=== PATIENT | female | born 1960 | race Caucasian/White ===

== ENCOUNTER 2022-03-01 18:29 | Emergency (ER) | payer MEDICAID, SELFPAY ==
[2022-03-01 18:44] VITALS: BP 108/74; PULSE 59; RESP 18; TEMP 36.6; O2SAT 98; BMI 26.5
--- NOTE | 2022-03-01 19:24 | CRLHL7_ITS ---
For Patients: As a result of the Cures Act, medical imaging exams and procedure reports are released immediately into your electronic medical record. You may view this report before your referring provider. If you have questions, please contact your health care provider. INDICATION: Left-sided fall. TECHNIQUE: Chest and ribs, 3 views. COMPARISON: None. FINDINGS: Lungs: Linear opacity in the left lower lobe could be atelectasis or a pulmonary contusion. Pleura: No pleural effusion or pneumothorax. Heart and Mediastinum: The cardiomediastinal silhouette is normal. The vessels are unremarkable. Bones: Mildly displaced fractures of the left lateral 7th and 8th ribs. IMPRESSION: Left lateral rib fractures with underlying pulmonary opacity, possibly contusion. Dictated by Hank Upton MD @ 03/01/2022 8:01:53 PM (Electronically Signed)
--- NOTE | 2022-03-01 20:09 | ED.BACK ---
HPI - Back Pain/Injury General Chief Complaint: Back Injury/Pain Stated Complaint: Pulled Muscle or Cracked Rib,Fall Time Seen by Provider: 03/01/22 19:18 Source: patient and family Mode of arrival: ambulatory Limitations: no limitations History of Present Illness HPI Narrative: Patient is a 61-year-old female who fell outside, elicited complaint: fall Pertinent past history: other Onset (ago): minute(s) Timing: constant Severity: moderate Similar Symptoms Previously: No Quality: sharp Location: left upper back Radiation: none Exacerbating factors: movement Relieving factors: none Context: while lifting Associated symptoms: denies other symptoms Work related injury: No Related Data Home Medications Medication Instructions Recorded Confirmed No Known Home Medications 03/01/22 03/01/22 Allergies Allergy/AdvReac Type Severity Reaction Status Date / Time No Known Drug Allergies Allergy Verified 03/01/22 18:50 Review of Systems Status of ROS: Reports: 10 or more systems reviewed and unremarkable except as noted in History and below PFSH PFSH Social History Smoking Status: Never smoker Do you use any of these nicotine containing products: None How often do you have a drink containing alcohol: never How often do you have six or more drinks on one occasion: Never AUDIT-C Alcohol total score: 0 Non-prescribed substance use: denies use Exam Narrative: Exam Narrative: Patient is seen in room 3 in no apparent distress she is able to stand up albeit slowly, she complains of pain along the left lower ribs side, in the left posterior axillary line. There is no evidence of any bruising here, she is able to take a deep breath in, twisting and turning are normal there is no thoracic pain on palpation, heart sounds are normal, and she has good lung sounds bilaterally there is no tenderness in the flank region, and her abdomen is otherwise soft. Const: Vital Signs, click to edit/add: Vital Signs - 24 hr 03/01/22 18:44 Temperature 97.8 F Pulse Rate [Pulse Oximeter] 59 L Respiratory Rate 18 Blood Pressure [Ri ght Upper Arm] 108/74 Pulse Oximetry 98 Oxygen Delivery Me thod Room Air Documenting provider has reviewed patient's vital signs: yes Course Course Hospital Course: I discussed with her that she has 2 small rib fractures that are noted on the x-ray, treatment with pain medication is suggested the risks benefits and side effects of this are discussed, these are provided be in the machine. Vital Signs Vital signs: Initial Vital Signs Temperature 97.8 F 03/01/22 18:44 Temperature Source Temporal Artery Scan 03/01/22 18:44 Pulse Rate 59 L 03/01/22 18:44 Respiratory Rate 18 03/01/22 18:44 Blood Pressure 108/74 03/01/22 18:44 Blood Pressure Mean 85 03/01/22 18:44 Blood Pressure Position Sitting 03/01/22 18:44 Pulse Oximetry 98 03/01/22 18:44 Oxygen Delivery Method 03/01/22 18:44 Vital Signs Temperature 97.8 F 03/01/22 18:44 Pulse Rate 59 L 03/01/22 18:44 Respiratory Rate 18 03/01/22 18:44 Blood Pressure 108/74 03/01/22 18:44 Pulse Oximetry 98 03/01/22 18:44 Oxygen Delivery Method 03/01/22 18:44 Temperature 97.8 F 03/01/22 18:44 Pulse Rate 59 L 03/01/22 18:44 Respiratory Rate 18 03/01/22 18:44 Blood Pressure 108/74 03/01/22 18:44 Pulse Oximetry 98 03/01/22 18:44 Oxygen Delivery Method 03/01/22 18:44 MDM - Back Pain/Injury MDM Narrative Medical decision making narrative: During this evaluation I considered multiple diagnosis is including thoracic injury, rib fracture, pneumothorax, hemothorax, lung other things Differential Diagnosis Differential diagnosis: Likely lumbar radiculopathy, renal colic, pyelonephritis, thoracic back pain and AAA Medical Records Attestation: I reviewed the patient's medical records. Imaging Data Chest x-ray: Attestation: I have reviewed the pertinent imaging results. My impression: I reviewed the chest x-ray which showed no acute findings, I did not see any evidence of rib fracture. Radiologist's impression: [address] [address] Diagnostic Imaging Report Patient: Therese Russo MR#: [id number] : 1960 Acct:[id number] Loc: ED Service Date: 03/01/[address]: Ordering Physician: Real Mart M.D. Date of Service: 03/01/22 Procedure(s): XR ribs LT min 3V w CXR1V Accession Number(s): [id number] cc: Provider,Not a Local ; Real Mart M.D.~ For Patients:? As a result of the Cures Act, medical imaging exams and procedure reports are released immediately into your electronic medical record.? You may view this report before your referring provider.? If you have questions, please contact your health care provider. INDICATION: Left-sided fall. TECHNIQUE: Chest and ribs, 3 views. COMPARISON: None. FINDINGS: Lungs: Linear opacity in the left lower lobe could be atelectasis or a pulmonary contusion. Pleura: No pleural effusion or pneumothorax. Heart and Mediastinum: The cardiomediastinal silhouette is normal. The vessels are unremarkable. Bones: Mildly displaced fractures of the left lateral 7th and 8th ribs. IMPRESSION: Left lateral rib fractures with underlying pulmonary opacity, possibly contusion. Dictated by Hank Upton MD @ 03/01/2022 8:01:53 PM (Electronically Signed) Discharge Plan Discharge Clinical Impression: Contusion of rib on left side, Closed rib fracture Patient Disposition: Home w/ Parent or Adult Condition: Stable Instructions: Contusion in Adults (ED), Rib Contusion (ED) Additional Instructions: Home, rest, use of cold over the area, ibuprofen/Tylenol is also suggested, increasing chest pain shortness of breath fevers chills or sweats and I would worry about something as secondary pneumonia in you should follow-up her Prescriptions: No Action No Known Home Medications Follow Up/Referrals: Provider,Not a Local [Primary Care Provider] - Stand Alone Forms: [employer] Info Instructions
--- NOTE | 2022-03-01 20:32 | ED.NURSE ---
Given insty meds for pain Percocet to take
== END 2022-03-01 20:36 | disposition home or self-care (01) ==
PROVIDERS: Emergency Provider Family Medicine
DX: S22.32XA Fracture of one rib, left side, initial encounter for closed fracture (principal); W01.0XXA Fall on same level from slipping, tripping and stumbling without subsequent striking against object, initial encounter
CPT/HCPCS: 71101; 99283; 99284